=== PATIENT | female | born 1950 | race Caucasian/White ===

== ENCOUNTER → 2024-07-18 17:27 | Outpatient (REF) | payer OTHER, SELFPAY | LOC: WDC 17:27 | PROVIDERS: ATTENDING PHYSICIAN Family Medicine | DX: Z12.31 Encounter for screening mammogram for malignant neoplasm of breast (principal) | CPT/HCPCS: 77063; 77067 ==

== ENCOUNTER → 2025-05-16 10:09 | Outpatient (REF) | payer OTHER, SELFPAY | LOC: RAD 10:09 | PROVIDERS: ATTENDING PHYSICIAN Family Medicine | DX: Z78.0 Asymptomatic menopausal state (principal) | CPT/HCPCS: 77080 ==